=== PATIENT | male | born 1960 ===

== ENCOUNTER 2022-08-23 10:05 | Outpatient (CLI) | payer MEDICAID, SELFPAY ==
--- NOTE | 2022-08-23 09:31 | DI.RAD_ITS ---
Exam(s) XR KNEE LT 3V AP,LAT,YUE EXAM: XR KNEE LT 3V AP,LAT,YUE CLINICAL HISTORY: LEFT KNEE PAIN. TECHNIQUE: 2D digital imaging was performed of the left knee. Four images were obtained. AP, later al and PA tunnel views were obtained. COMPARISON: CR XR KNEE 3V LT from 12/17/2019 FINDINGS: BONES: No acute fracture is present. No bony destructive lesion is seen. JOINTS: The knee is normally aligned. There is marked narrowing of the medial femoral tibial joint. Periarticular spurring is seen at the posterior patella. No significant joint effusion is seen. SOFT TISSUE: Normal. IMPRESSION: Moderate degenerative changes seen in the knee. DATA REPOSITORY: RADIATION DOSE DELIVERED:
== END 2022-08-23 10:06 | disposition home or self-care (01) ==
LOC: DIORS 10:06
PROVIDERS: PCP Neuromusculoskeletal Medicine & OMM; Referring Provider Neuromusculoskeletal Medicine & OMM; Visit Provider Student in an Organized Health Care Education/Training Program
DX: M17.12 Unilateral primary osteoarthritis, left knee (principal)
CPT/HCPCS: 73562

== ENCOUNTER 2024-01-19 02:56 | Outpatient (CLI) | payer MEDICAID, SELFPAY ==
[2024-01-19 15:37] LABS: HCT 41.1 % (40.0-50.0); HGB 13.6 g/dL (13.5-17.5); MCH 31.1 pg (27.0-33.0); MCHC 33.1 % (32.0-36.0); MCV 94 fL (80-95); MPV 9.2 fL (8.0-11.0); Platelet Count 153 10^3/uL (130-400); RBC 4.38 10^6/uL (4.36-5.78); RDW 12.3 % (11.8-14.1); RDW-SD 42.5 fL; WBC 6.11 10^3/uL (4.4-10.8)
[2024-01-19 16:33] LABS: Anion Gap 7.8 mmol/L (3-11); BUN 23 mg/dL (7-18); CO2 29.2 mmol/L (21.0-32.0); CREATININE 1.2 mg/dL (0.70-1.30); Chloride 108 mmol/L (98-107); Glucose 84 mg/dL (74-106); Potassium 4.6 mmol/L (3.5-5.1); Sodium 145 mmol/L (136-145)
== END 2024-01-19 02:57 | disposition home or self-care (01) ==
LOC: LBO 02:56
PROVIDERS: PCP Neuromusculoskeletal Medicine & OMM; Visit Provider Student in an Organized Health Care Education/Training Program
DX: M17.12 Unilateral primary osteoarthritis, left knee (principal); Z01.818 Encounter for other preprocedural examination
CPT/HCPCS: 36415; 80048; 85027

== ENCOUNTER 2024-01-19 15:22 | Outpatient (CLI) | payer MEDICAID, SELFPAY ==
--- NOTE | 2024-01-19 14:38 | DI.RAD_ITS ---
Exam(s) XR STANDING ALIGNMENT EXAM: XR STANDING ALIGNMENT CLINICAL HISTORY: PRE OP. TECHNIQUE: 2D digital imaging was performed. Four images were obtained. COMPARISON: CR XR KNEE 3V LT from 12/17/2019 CR XR KNEE LT 3V AP,LAT,YUE from 08/23/2022 FINDINGS: BONES: The hips are well maintained. There is moderately severe narrowing in the medial femoral tibi al joint of the left knee. The right knee is well maintained. The ankles are well maintained.There is no significant leg length discrepancy. SOFT TISSUE: Normal. IMPRESSION: Moderately severe narrowing of the medial femoral tibial joint of the left knee. DATA REPOSITORY: RADIATION DOSE DELIVERED:
== END 2024-01-19 15:23 | disposition home or self-care (01) ==
LOC: DIORS 15:22
PROVIDERS: PCP Neuromusculoskeletal Medicine & OMM; Visit Provider Physician Assistant
DX: M17.12 Unilateral primary osteoarthritis, left knee (principal)
CPT/HCPCS: 77073

== ENCOUNTER 2024-02-04 07:03 | Day surgery (SDC) | payer MEDICAID, SELFPAY ==
[2024-02-04] VITALS (26 sets, daily range): BP systolic 108–145; BP diastolic 58–86; PULSE 59–73; RESP 10–24; TEMP 36.2–36.5; O2SAT 92–98; BMI 30.9
--- NOTE | 2024-02-04 07:22 | W.PM.DSUDISC ---
Date of service: 02/04/24 Time of Service: 07:22 Discharge Plan Disposition Patient Disposition: Home Condition: Good Discharge Details Reason For Visit: L TKR Attending Provider: Vincent Weiss Primary Care Provider: Jude Garcia Elba Meds and New Rx's Prescriptions: New celecoxib 200 mg capsule 200 mg PO BID Qty: 60 0RF aspirin 81 mg tablet,delayed release (DR/EC) 81 mg PO BID Qty: 60 0RF acetaminophen 500 mg tablet 1,000 mg PO TID Qty: 90 3RF pantoprazole 40 mg tablet,delayed release (DR/EC) 40 mg PO DAILY Qty: 30 0RF dexamethasone 4 mg tablet 4 mg PO DAILY Qty: 2 0RF gabapentin 300 mg capsule 300 mg PO QHS Qty: 14 0RF oxycodone 5 mg tablet 5 mg PO Q4H MDD 6 tabs PRN (Reason: pain) Qty: 20 0RF Continued atorvastatin 40 mg tablet 40 mg PO DAILY Discontinued meloxicam 15 mg tablet See Rx Instructions .ROUTE .COMPLEX Qty: 30 3RF Dose Instruction: TAKE 1 TABLET BY MOUTH DAILY Rx Instructions: TAKE 1 TABLET BY MOUTH DAILY Discharge Instructions Additional Instructions: Total Knee Discharge Instructions Activity: The most important activity is to walk and to work on gentle motion (both flexion and extension). You should try to take short walks a few times a day. It is important that when resting you work on keeping the knee straight. Avoid putting a pillow behind the knee as this will encourage flexion. Work on range of motion exercises as provided by Physical Therapy. - Start outpatient physical therapy within 2 weeks. - You should wear the WINIFRED hose on both legs for 2 weeks. You may remove these at night. You may also use any compression sock in place of the WINIFRED hose. - Utilize [employer] to review exercises, see videos on exercises and obtain basic information pertaining to your surgery and your recovery. Dressing: Remove the Davin wrap by 2 days after your surgery and put on the WINIFRED stocking given to you from the hospital. Keep the surgical dressing (underneath the DAVIN wrap) in place for at least one week. After the first week it may be removed and replaced with light gauze and tape or nothing. The wound and dressing may get wet after 3 days but avoid soaking the dressing or otherwise it will need to be changed. Many people prefer covering the dressing with cling wrap (saran wrap) to minimize it from getting soaked. If it gets wet, just pat dry. If it starts to peel off then it will need to be changed. Medications: - You should take Tylenol and anti-inflammatory Celebrex as your primary pain control medications. If the Celebrex is too expensive or not covered, please call the office for another alternative (Advil/Ibuprofen or Naproxen/Aleve) - You have been prescribed a stronger pain medication Oxycodone for breakthrough pain, take as needed as prescribed. - You have also been prescribed a stomach acid reduction agent Pantoprozole to help reduce stomach acid and reflux. - You have been prescribed Gabapentin to take at night for restlessness and nerve pain. - You will be taking Aspirin 81mg twice a day for DVT prevention unless instructed otherwise. - You have also been prescribed Decadron to take to control post-operative nausea and pain. You will start this tomorrow. - If you have constipation you should take Colace or Miralax (both [id number]). It takes most people 3-4 days to have a bowel movement. Follow-up: 2 weeks If you have any acute concerns or questions, please do not hesitate to contact the office at [phone]. You may contact Dr. Weiss with any questions after hours through the hospital at [phone] or on his cell phone at [phone]. Referrals: Vincent Weiss MD [ [facility] STAFF PHYSICIAN] - Equipment/Supplies: Walker Activity:: Activity as Tolerated Shower/Bathe:: 72 hours Diet:: As Tolerated Discharge Orders Discharge Orders: Discharge Order (Routine); Ordered 02/04/24 Ordered By: Anatoly Salvador DS: Diagnosis Discharge Diagnosis (1) Unilateral primary osteoarthritis, left knee: Status: Acute
[2024-02-04] MEDS: Acetaminophen 500 MG TAB 1000 MG PO (08:20)
[2024-02-04] MEDS: Gabapentin 300 MG CAP PO (08:21)
[2024-02-04] MEDS: Celecoxib 200 MG CAP 400 MG PO (08:21)
[2024-02-04] MEDS: Normal Saline 1,000 ML 30 ML IV (09:05)
--- NOTE | 2024-02-04 09:51 | ANES.PREOP_ITS ---
General Info Date of Service Date Performed: 02/04/24 Height: 6 ft 2 in Weight: 109.4 kg Body Mass Index (BMI): 30.9 Surgical Procedure: Operation Date: 02/04/24 09:55 Proposed Procedure Side Surgeon p Knee Total Arthroplasty, Cementless CR Left Vincent Weiss MD Meds Allergies and Home Medications Allergies Allergy/AdvReac Type Severity Reaction Status Date / Time amoxicillin Allergy Intermediate Hives Verified 02/04/24 07:47 Home Medication ?Medication ?Instructions ?Recorded atorvastatin 40 mg tablet 40 mg PO DAILY 12/18/23 acetaminophen 500 mg tablet 1,000 mg (2 x 500 mg) PO TID #90 02/04/24 tabs aspirin 81 mg tablet,delayed 81 mg PO BID #60 tabs 02/04/24 release celecoxib 200 mg capsule 200 mg PO BID #60 caps 02/04/24 cholecalciferol (vitamin D3) 125 5,000 unit PO DAILY 02/04/24 mcg (5,000 unit) tablet (Vitamin D3) dexamethasone 4 mg tablet 4 mg PO DAILY #2 tabs 02/04/24 gabapentin 300 mg capsule 300 mg PO QHS #14 caps 02/04/24 oxycodone 5 mg tablet 5 mg PO Q4H PRN pain #20 tabs 02/04/24 pantoprazole 40 mg tablet,delayed 40 mg PO DAILY #30 tabs 02/04/24 release Current Visit Medications: Current Medications Generic Name Dose Route Start Last Admin Trade Name Freq PRN Reason Stop Dose Admin Acetaminophen 1,000 mg 02/04/24 06:00 02/04/24 08:20 Acetaminophen 500 Mg Tab PO 02/04/24 18:00 1,000 mg PREOP LULY Administration Acetaminophen 1,000 mg 02/04/24 07:20 Acetaminophen 500 Mg Tab PO 03/05/24 08:29 TID PRN Analgesia Celecoxib 400 mg 02/04/24 06:00 02/04/24 08:21 Celecoxib 200 Mg Cap PO 02/04/24 18:00 400 mg PREOP LULY Administration Docusate Sodium 100 mg 02/04/24 07:20 Docusate Sodium 100 Mg Cap PO 03/05/24 07:19 BID PRN PRN Constipation Gabapentin 300 mg 02/04/24 06:00 02/04/24 08:21 Gabapentin 300 Mg Cap PO 02/04/24 18:00 300 mg PREOP LULY Administration Cefazolin Sodium/Dextrose 2 gm in 50 mls @ 100 mls/hr 02/04/24 06:00 Ancef Duplex IVPB 02/04/24 18:00 PREOP LULY Tranexamic Acid 1,000 mg/ 110 mls @ 660 mls/hr 02/04/24 06:00 Sodium Chloride IVPB 02/04/24 16:00 PREOP LULY Sodium Chloride 1,000 mls @ 30 mls/hr 02/04/24 07:15 02/04/24 09:05 Saline 1000ml Bag IV 03/05/24 07:14 30 mls/hr INFUSION LULY Administration IV Miscellaneous Supplies 1 each 02/04/24 06:00 Iv Access IV 03/04/24 23:59 DIRECTED LULY Ondansetron HCl 4 mg 02/04/24 07:20 Ondansetron 4 Mg/2 Ml Vial IVP 03/05/24 07:19 Q6H PRN PRN Nausea Oxycodone HCl 0 mg 02/04/24 07:20 Oxycodone 5 Mg Tab PO 03/05/24 07:19 Q3H PRN PRN Pain Polyethylene Glycol 17 gm 02/04/24 07:20 Polyethylene Glycol 3350 17 Gm Packet PO 03/05/24 07:19 BID PRN PRN Constipation Sodium Chloride 0 ml 02/04/24 06:00 Normal Saline Flush 10 Ml Syr IV 03/04/24 23:59 PRN PRN Sodium Chloride 0 ml 02/04/24 06:00 Normal Saline 10 Ml Vial IJ 03/04/24 23:59 DIRECTED PRN Sterile Water 0 ml 02/04/24 06:00 Water,Injection,Sterile 10 Ml Vial IJ 03/04/24 23:59 DIRECTED PRN PFSH Active Problems Active Problems: Problem Status Onset Code Unilateral primary osteoarthritis, left knee Acute M17.12 Surgical History Surgical History (Updated 02/04/24 @ 09:08 by Angella Godinez) History of placement of ear tubes Hx of cardiac cath [place] teeth extracted Tobacco Smoking/Tobacco Use Status: Never Alcohol Alcohol Intake: never Substance Use Substance use type: does not use Vital Signs and Lab Results Vital Signs Most Recent Vital Signs in EMR: Most Recent Vital Signs Temp Pulse Resp BP Pulse Ox 36.3 C L 72 18 134/71 97 02/04/24 07:15 02/04/24 07:15 02/04/24 07:15 02/04/24 07:15 02/04/24 07:15 Lab Results Blood Type / Crossmatch: No Data to Display Complete Blood Count: White Blood Count 6.11 10^3/uL (4.4-10.8) 01/19/24 15:25 Red Blood Count 4.38 10^6/uL (4.36-5.78) 01/19/24 15:25 Hemoglobin 13.6 g/dL (13.5-17.5) 01/19/24 15:25 Hematocrit 41.1 % (40.0-50.0) 01/19/24 15:25 Platelet Count 153 10^3/uL (130-400) 01/19/24 15:25 Complete Metabolic Panel: Sodium 145 mmol/L (136-145) 01/19/24 15:25 Potassium 4.6 mmol/L (3.5-5.1) 01/19/24 15:25 Chloride 108 mmol/L (98-107) H 01/19/24 15:25 Carbon Dioxide 29.2 mmol/L (21.0-32.0) 01/19/24 15:25 BUN 23 mg/dL (7-18) H 01/19/24 15:25 Creatinine 1.2 mg/dL (0.70-1.30) 01/19/24 15:25 Est GFR (CKD-EPI 2020) 68.80 (mL/min/1.73m2) 01/19/24 15:25 Calcium 9.0 mg/dL (8.5-10.1) 01/19/24 15:25 Glucose 84 mg/dL (74-106) 01/19/24 15:25 Liver Function Panel: No Data to Display Coagulation Panel: No Data to Display Cardiac Panel: No Data to Display Arterial Blood Gas: No Data to Display Venous Blood Gas: No Data to Display Pancreas Panel: No Data to Display Thyroid Panel: No Data to Display Infectious Disease: No Data to Display Blood Cultures: No Data to Display Toxicology Panel: No Data to Display Imaging and Studies Imaging and Studies Study information below may be from another EMR and interpreted by another provider. Please see original notes in EMR for more complete details. Other Study Summary:: Reviewed Cath results with patient from 2017 Anesthesia Assessment and Plan Anesthesia History Personal History: No History of Anesthesia Complications Family History: No Family History of Anesthesia Complications Exercise Tolerance Exercise Tolerance: Metabolic Equivalents>4 Pertinent Negatives Pertinent Negatives: No Symptoms of GERD, No Major Cardiovascular Symptoms or Complaints, No Major Pulmonary Symptoms or Complaints and No History of CVA/TIA Cardiac & Pulmonary Exam Cardiac Exam: Normal S1/S2 Heart Sounds Pulmonary Exam: Clear Bilateral Breath Sounds Implantable Cardiac Device Does patient have a Pacemaker or an ICD?: No Airway Exam Known Difficult Airway: No Mallampati Class: 2 Mouth Opening: Normal (> 3cm) Thyromental Distance: Greater than 3 cm Neck Range of Motion: Full ROM Neck Circumference: Normal Teeth Condition: Normal Dentition ASA Classification ASA Score: ASA 2 Emergency Case?: No NPO Status NPO Status: NPO Clears >2 hours, Solids >8 hours Anesthesia Plan Resuscitation Status: Full Code Anesthesia Technique: Spinal Anesthesia Airway Planned: Natural Airway Monitors Used: Standard Monitors
--- NOTE | 2024-02-04 10:29 | W.ANESNERVE ---
Nerve Block Single Injection Procedure Date and Time Date Performed: 02/04/24 Procedure Start: 10:07 Location Where Procedure Performed Procedure Location: Day Surgery Unit Reason Performed: Postoperative Analgesia Requesting Provider: Vincent Weiss Timeout Performed Timeout Performed: Yes Monitoring Used ECG, Blood Pressure and SpO2 Sterility Sterility: Hand Hygiene, Surgical Cap, Surgical Mask, Sterile Gloves and Chlorhexidine Sedation Given During Procedure Sedation Given (Indicate Dose Given): No Sedation given Patient Mental Status Patient Mental Status: Awake Nerve Block 1st Nerve Block: Laterality: Left Block Type: Adductor Canal Ultrasound Image Saved?: Yes Needle / Catheter Used: 100mm SonoPlex II Local Anesthetic Bolus (Indicate Dose Given): Lidocaine used for local infiltration of skin, Injected in 3-5ml increments after negative blood aspiration and Bupivacaine 0.25% Dose:: 10 ml Additives (Indicate Dose Given): Normal Saline Ultrasound: Sterile probe cover and gel used Nerve Stimulator: Supplement to Ultrasound use and No twitch or parasthesia noted < 0.5 mA Paresthesia: None Procedure Tolerated: No Complications and Patient tolerated well Procedure Outcome: Successful Performed By: Kole Ibanez
[2024-02-04] MEDS: ceFAZolin 2 GM/50 ML BAG IVPB (10:38)
--- NOTE | 2024-02-04 12:49 | W.ANESPOSTOP ---
Postoperative Evaluation Date, Time and Location Date Performed: 02/04/24 Time Performed: 12:50 Patient Location: PACU Vital Signs Most Recent Imported Vital Signs: Most Recent Vital Signs Temp Pulse Resp BP Pulse Ox 36.5 C 66 16 125/72 96 02/04/24 12:40 02/04/24 12:40 02/04/24 12:40 02/04/24 12:40 02/04/24 12:40 Pain Score Most Recent Pain Score: Most Recent Pain Score Pain Level 0 02/04/24 12:36 Assessment Mental Status: Awake (Alert & Oriented to Patient Baseline) Airway and Respiratory Function: Patent airway with normal (patient baseline) respiratory exam Cardiovascular Function: Hemodynamically Stable Hydration Status: Adequately Hydrated Nausea & Vomiting: No Nausea or Vomiting Pain: Pt. Denies Any Pain Peripheral Nerve Block: Regional nerve block not resolved at time of post operative discharge
--- NOTE | 2024-02-04 13:19 | W.PM.OP ---
Operative Note Operative Note PRE-OP DIAGNOSIS: Left Knee Osteoarthritis POST-OP DIAGNOSIS: same PROCEDURE: Left Total Knee Replacement SURGEON: Vincent Weiss [employer] LAB TECHNICIAN: Elham Salvador ANESTHESIA TYPE: Spinal Refer to Anesthesia Record ESTIMATED BLOOD LOSS: 100 PATHOLOGY: none sent TOURNIQUET TIME: 0 COMPLICATIONS: None Patient was transported to: PACU Patient's condition: stable Implants: 1. Depuy Attune Cementless Cruciate Retaining Femoral Component, Size 10 2. Depuy Attune Cementless Fixed Bearing Tibial Component, Size 10 3. Depuy Attune 10x6mm CR/FB Poly 4. Depuy Attune Patellar Component, Size 41 Indications: I have seen Jamey in clinic for symptoms of knee arthritis, confirmed with radiographic findings. He has exhausted nonoperative methods and was having significant limitations in daily function and desired better function and less pain. I discussed the technical details of a knee replacement. I explained the risks of the procedure to include, but not limited to, bleeding, infection, pain, stiffness, fracture, damage to nerves and vessels, damage to muscles and tendons, loosening, need for repeat procedure, blood clot and cardiopulmonary demise. Despite these risks, Jamey elected to proceed. Findings: There was significant signs of arthritis throughout the medial aspect of the knee. The patella had full thickness cartilage loss at the apex. Procedure Description: Jamey was greeted in the preoperative holding area where the correct side was identified and marked. The consent was reviewed with the patient and signed. The history and physical was updated. All questions were answered. Preoperative medications were administered: Acetaminophen 1000mg, Celebrex 400mg, and Gabapentin 300mg. An adductor canal block was then administered by the anesthesia team in the DSU. He was taken back to the operating room. A spinal anesthestic was then administered. The patient was placed into the supine position on the operating room table. Posts were placed for positioning during the procedure. All bony prominences were well padded. Prophylactic antibiotics in the form of Cefazolin were administered. 1g of Tranxemic Acid was given intravenously within 30 minutes of incision. The left leg was then prepped with Chloraprep and draped in a standard fashion with impervious stockinette. A second prep with Chloraprep was performed prior to application of Iodine impregnated skin protection. A timeout to confirm correct identity, side and site, procedure, allergies, anesthesia, and medical concerns was performed. With the knee in some flexion, a midline incision was made overlying the knee. Full thickness skin flaps were raised once the extensor mechanism was encountered. These were raised medially and laterally. Any bleeding was controlled with electrocautery. Once the extensor mechanism was fully exposed, a medial parapatellar arthrotomy was performed in a flexed position. All bleeding from the arthrotomy and the geniculate arteries was coagulated. A medial subperiosteal peel was performed with electrocautery to the midcoronal plane. The fat pad was removed while keeping the patellar tendon protected. The anterior distal femur synovium was removed for later visualization. The ACL and PCL were resected and the anterior horn of the lateral meniscus was transected. The knee was then flexed with the patella everted. Large osteophytes from the tibia were removed. Large osteophytes from the femur were removed. Using a step drill, and based on preoperative templating, the femoral canal was entered. This was done with a step drill without any difficulty. The intramedullary distal femoral cut guide was inserted, set to a 4 degree valgus cut and 9mm cut thickness. The distal femoral cut guide was then held in position and pinned. With the soft tissues protected, the distal cut was performed. This was passed over a few times to ensure a planar cut. I then turned attention to the tibia. The extramedullary guide was placed onto the leg. The distal aspect was slid medial to adjust for position of center of ankle and stay in line with shaft of the tibia. Approximately 3-5 degrees of posterior slope was kept in the proximal cutting guide. The center of the guide was aligned with the PCL. The stylus was used to assess cut thickness. The medial side, most involved side, was set for a 4mm cut. This was then held in position and pinned into place with 2 additional pins and a cross pin for stability. The medial and lateral collateral ligaments were protected and the cut was performed. With this completed, it was assessed and noted to be of appropriate dimensions. The guide was removed. A spacer block was inserted and the knee was brought into extension. The 6mm spacer block provided full extension, without hyperextension and with stability of both the medial and lateral collateral ligaments was assessed. The pins from the femur and the tibia were then removed. The distal femur was then sized. The anterior stylus was placed onto the lateral ridge of the anterior femur. This indicated a size 10 femur. The external rotation of the guide was adjusted to 3 degrees to match the epicondylar axis, perpendicular to Sullivan?s line. The 4-in-1 cutting guide was the placed. The posterior medial femur cut was evaluated and appeared of good thickness. The spacer block was inserted underneath the cutting guide and stability was confirmed in 90 degrees of flexion. An salvador wing was used to confirm appropriate position of the anterior cut to avoid notching. This cutting guide was ensured to be flush on the cut surface and then pinned into place with headed pins. While protecting the soft tissues, quad tendon, and collateral ligaments, the anterior and posterior cuts were performed with a saw. The central two pins were removed and the posterior and anterior chamfers were cut next. The notch-cutting guide was placed. This was pinned to lateralize the femoral component as much as possible while keeping it flush on the cut surface. This was then pinned into position. A reciprocating saw was used to make the notch cut. A rasp smoothed the cut surfaces. The medial and lateral menisci were removed. A trial femoral component was then inserted, impacted down to the cut surfaces, and the lug holes were drilled. A provisional trial tibial component was placed and the knee was brought through range of motion. There was noted to be excellent extension and flexion. There was no significant instability. The patella was tracking without thumbs. A size 6mm polyethylene component provided the best range of motion and stability with less than 2mm gapping with medial and lateral stress and full extension without significant hyperextension. The tibial cut surface was fully exposed. The tibia was then sized as a 10. The tibia had been previously marked during trialing to correspond to the center of the tibial component to help with rotation. The trial was aligned to this elham, approximately rotated to the medial 1/3rd of the tibial tubercle. The trial was pinned into place. The tibia was prepared with a reamer and a keel punch and lug holes. The knee was then brought into extension and the patella was measured as 28mm. Using the patellar clamp and cut guide, this was resected to a flat surface with at least 13mm of thickness remaining. The size 41 patella fit the best. This was oriented and then clamped into position. The lugs were drilled. The trial components were removed. The final components were opened on the back table. The periosteal and capsular tissues, especially posteriorly, around the knee were then systematically injected with a periarticular cocktail consisting of 246mg of Ropivacaine, 0.5mg of Epinephrine, 0.08mg of Clonidine, and 30mg of Ketorolac, diluted to 100cc. On the back table, with the implants opened, the cement was mixed. One batch of high viscosity cement was prepared with vacuum assistance. After the cement was ready a small amount was placed on the cut surface of the patella and the patellar button was clamped into position and held. While the cement was hardening, the cementless knee components were placed. Starting with the tibial component, the tibia was subluxed anteriorly and the lug holes of the component were lined up. The tibia was then impacted with an impactor and mallet until the tibial component was in contact with the tibia. The final polyethylene component was inserted. Then, the femoral component was inserted. The lug holes were aligned and the component was impacted into position. The knee was irrigated with Surgiphor Betadine solution. This was allowed to sit in the knee for 3 minutes and then it was irrigated out with saline. After the cement had finally cured, approximately 15min, the clamp was removed from the patella and the knee was taken through range of motion. The patella was tracking with a no-thumbs technique. The capsule was then reapproximated with a No. 1 Vicryl at multiple locations. The capsule was finally closed with a No. 2 Stratafix, barbed suture. The second dosing of 1g TXA was started. Deep tissues were then reapproximated with 0 Vicryl and 2-0 Vicryl. The skin was closed with a running 3-0 Monocryl in a subcuticular fashion. This was reinforced with skin glue. A Mepilex silver dressing was applied along with a [id number] LETICIA wrap. A CryoCuff was applied. Jamey was transferred to the hospital bed without difficulty an suffering no apparent complication. He has a good prognosis. Physical therapy will start today and without restrictions, weight-bearing as tolerated. Aspirin 81mg BID will be used for DVT prophylaxis. Date of Procedure: 02/04/24
--- NOTE | 2024-02-04 15:33 | IN_ITS ---
PT Notes Visit Reasons: L TKR Physical Therapy Day Surgery Initial Evaluation Date: 02/04/2024 Referring Doctor: Dr. Weiss PT Orders: PT CONSULT: Status post Ortho surgery Precautions: WBAT L LE, TEDS x 2 weeks Patient Profile/Admitting Diagnosis: Patient is 63-year-old male presenting status post elective left TKA under spinal anesthesia. Postop uncomplicated. PMHX: OA left knee Social History/Home Situation: Patient resides with his in 1 level home with 3 steps to enter with right rail. 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 He is independent with ADLs, IADLs, ambulation without device, driving, household tasks, cooking, med management Equipment Owned/DME: Raised toilet seat, patient fitted for FWW provided by [employer] Subjective: Patient reports his bathroom is standard height toilet which his purchased a raised toilet seat to elevate the height. He reports his bed is average height and has a recliner to sit in at home. Objective: Vitals supine 139/82, 62 bpm; sit 123/69, 68 bpm; sit after 8 minutes 133/96, 78 bpm General Observation: Semireclined on stretcher with Cryo/Cuff to left knee patient agreeable to participate in PT assessment Mental Status: Alert and oriented x 4 Pain: Left knee initially reported 6-7 prior to Cryo/Cuff removal; after Cryo/Cuff removal reported pain 3/10 ROM: Right Upper Extremity: Within normal limits Left Upper Extremity: Within normal limits Right Lower Extremity: Within normal limits Left Lower Extremity: Hip and ankle within normal limits; knee 5?100 Strength: [] Right Upper Extremity: 5/5 Left Upper Extremity: 5/5 Right Lower Extremity: 5/5 Left Lower Extremity: Hip flexion: 3/5; hip abduction: 3 -/5; hip extension: 3 -/5; knee extension: 3 -/5; knee flexion: 2+/5 ankle DF: 3/5 ; ankle PF: 3/5 Sensation: Intact light touch deep pressure right lower extremity Bed Mobility/Transfers: Supine to sit independent Sit to stand supervision with cues for hand placement Stand to sit supervision with cues for hand placement Bed to chair supervision with FWW Gait: Ambulated 150 feet with FWW supervision reciprocal pattern with intermittent cues for knee extension at mid stance left patient demonstrates decreased knee flexion during swing phase on left early heel off on left reduced heel strike on left. Stairs: 5 steps with right rail supervision with cue to hold left knee in extension with weightbearing Balance: Static Sitting: Normal Dynamic Sitting: Good Static Standing: Good plus Dynamic Standing: Good with FWW Special Tests: Mobility Limitations Standardized Measure [facility] AM-PAC 6 clicks Basic Mobility Inpatient Short Form: Raw Score: 22 CMS Score: 20.91% Informed Consent/Education: Patient instructed in purpose of PT consult. Packet containing TKA exercise protocol has been given to patient. Education and training on initial set of exercises that can be done at home have been completed with patient. Patient also instructed in ascending descending stairs with 1 rail he was able to demonstrate safe technique with supervision Assessment: Patient is 63-year-old male presenting status post elective left TKA. Postop patient noted with episode of orthostatic which resolved with sit rest. Despite initial episode of orthostatic hypotension, patient demonstrated ability to safely perform functional tasks at a supervised level. His was present and feels comfortable with discharge to home. Patient presents with clinical signs and symptoms consistent with current/admitting diagnoses that have resulted to mobility limitations, gait instability, generalized weakness, and impairment of motor control as demonstrated by the following impairment level findings: 1. Decreased strength to left knee major muscle groups 2. Impaired standing balance 3. Limitation of joint range of motion in left knee 4. Impaired functional activity tolerance 4. Impairments are contributing to the following functional limitations: 1. Inability to safely ambulate without assistive device 2. Increase completion time for mobility ADL performance 3. Increased fall risk 4. Difficulty with managing steps alone safely Patient is assessed as a [moderate complexity based on the following: History: 63-year-old male with impairment level findings, functional limitatio ns, and past medical history as indicated above Examination: Demonstrable impairment in strength, balance, and mobility level with underlying impairments and functional limitations as documented above Presentation: Evolving Decision Making: Moderate Goals: N/A. Plan of Care/Treatment Plan: N/A. DISCHARGE RECOMMENDATIONS: Home with outpatient PT as scheduled TREATMENT CODE/TIME: 24874 x 20 minutes for 1 unit, 38107 x 41 minutes for 3 units/[id number] Thank you for the opportunity to participate in the care of this patient. Dodie Adan PT Please sign an return this page within 30 days if you agree with the above POC. Thank you! Physician Signature Date [facility]
== END 2024-02-04 15:50 | disposition home or self-care (01) ==
PROVIDERS: PCP Neuromusculoskeletal Medicine & OMM; Visit Provider Student in an Organized Health Care Education/Training Program
PROC: (CPT 27447; principal; 2024-02-04 09:45)
DX: M17.12 Unilateral primary osteoarthritis, left knee (principal); G89.18 Other acute postprocedural pain
CPT/HCPCS: 27447; 64447; 97162; 97530; C1776; J0665; J0690; J1100; J2003; J2371; J2401; J2405; J2704

== ENCOUNTER 2024-03-18 15:42 | Outpatient (CLI) | payer MEDICAID, SELFPAY ==
--- NOTE | 2024-03-18 10:32 | DI.RAD_ITS ---
Exam(s) XR KNEE LT 1V XR STANDING ALIGNMENT EXAM: XR STANDING ALIGNMENT CLINICAL HISTORY: s/p L TKA. TECHNIQUE: 2D digital imaging was performed. Standing AP views were performed from the pelvis throu gh the ankles. Lateral view of the left knee. COMPARISON: CR XR STANDING ALIGNMENT from 01/19/2024 CR XR KNEE LT 1V from 03/18/2024 FINDINGS: BONES: No acute fracture is present. No bony destructive lesion is seen. Leg length discrepancy: No significant overall leg length discrepancy. JOINTS: Knees: Left total knee prosthesis has been placed. The alignment appears satisfactory. The right knee joint spaces are maintained. The ankle joints are unremarkable. The hip joint spaces are maintained. Acetabular spurring. SOFT TISSUE: Normal. IMPRESSION: Status post placement of wall left knee prosthesis. No significant leg length discrepancy. DATA REPOSITORY: RADIATION DOSE DELIVERED:
== END 2024-03-18 15:43 | disposition home or self-care (01) ==
LOC: DIORS 15:43
PROVIDERS: PCP Family Medicine; Visit Provider Student in an Organized Health Care Education/Training Program
DX: Z96.652 Presence of left artificial knee joint (principal); Z47.1 Aftercare following joint replacement surgery
CPT/HCPCS: 73560; 77073

== ENCOUNTER 2025-02-03 11:18 | Outpatient (CLI) | payer MEDICAID, SELFPAY ==
--- NOTE | 2025-02-03 08:45 | DI.RAD_ITS ---
Exam(s) XR KNEE LT 2V AP,LAT EXAM: XR KNEE LT 2V AP,LAT CLINICAL HISTORY: ANNUAL F/U L TKA. TECHNIQUE: 2D digital imaging was performed. COMPARISON: CR XR KNEE LT 1V from 03/18/2024 FINDINGS: Two views There is stable position alignment of the components of the left knee prosthesis. No fracture or loosening evident. No evidence of osteomyelitis IMPRESSION: Stable satisfactory appearance. DATA REPOSITORY: RADIATION DOSE DELIVERED:
--- NOTE | 2025-02-03 08:45 | DI.RAD_ITS ---
Exam(s) XR KNEE RT 4V AP,LAT,YUE,PAT EXAM: XR KNEE RT 4V AP,LAT,YUE,PAT CLINICAL HISTORY: RIGHT KNEE PAIN. TECHNIQUE: 2D digital imaging was performed. COMPARISON: CR XR KNEE LT 2V AP,LAT from 02/03/2025 FINDINGS: Four views No evidence of fracture but there does appear to be a joint effusion which may signify internal derangement.. There is mild-moderate narrowing of the medial compartment. There is normal height preserved in the lateral compartment. There is some narrowing of the lateral aspect of the patellofemoral compartment. There are no osteochondral defects in this compartment nor in the medial lateral compartments. IMPRESSION: Moderate degenerative narrowing of the medial compartment and lateral aspect of the patellofemoral compartment. Small joint effusion. DATA REPOSITORY: RADIATION DOSE DELIVERED:
== END 2025-02-03 11:19 | disposition home or self-care (01) ==
LOC: DIORS 11:19
PROVIDERS: PCP Family Medicine; Visit Provider Student in an Organized Health Care Education/Training Program
DX: Z96.652 Presence of left artificial knee joint (principal); M25.561 Pain in right knee; M17.11 Unilateral primary osteoarthritis, right knee
CPT/HCPCS: 73560; 73564